=== PATIENT | male | born 1960 | race Caucasian/White ===

== ENCOUNTER 2023-10-21 11:32 | Outpatient (CLI) | payer OTHER, SELFPAY ==
--- NOTE | 2023-10-21 12:47 | CTR_ITS ---
PROCEDURE INFORMATION: Exam: CT Chest Without Contrast; Diagnostic Exam date and time: 10/21/2023 12:54 PM Age: 63 years old Clinical indication: Condition or disease; Lung condition and disease; Pulmonary nodule, solitary; Additional info: Follow up nodules TECHNIQUE: Imaging protocol: Diagnostic computed tomography of the chest without contrast. Radiation optimization: All CT scans at this facility use at least one of these dose optimization techniques: automated exposure control; mA and/or kV adjustment per patient size (includes targeted exams where dose is matched to clinical indication); or iterative reconstruction. COMPARISON: No relevant prior studies available. RADIATION DOSE METRICS: Total DLP (mGy-cm): 494.06 FINDINGS: Lungs: There is a 5 mm linear pleural-based nodularity involving the lateral aspect of the right lung apex. A rounded 8 mm semi-solid nodule involves the right upper lobe anteriorly. A 1 cm irregular nodule involves the lingula of the left lung. Pleural spaces: Unremarkable. No pneumothorax. No pleural effusion. Heart: Unremarkable. No cardiomegaly. No pericardial effusion. Coronary arteries: Coronary artery calcifications are noted. Lymph nodes: Unremarkable. No enlarged lymph nodes. Vasculature: Unremarkable. No aortic aneurysm. Bones/joints: Unremarkable. No acute fracture. Soft tissues: Unremarkable. CT/CT chest wo con [id number] IMPRESSION: 1. Bilateral benign-appearing lung nodules. Annual CT is recommended for follow-up. 2. For patients at low risk (minimal or absent history of smoking and of other known risk factors), no routine follow-up is indicated. For patients at high risk (history of smoking or of other known risk factors), consider optional CT Chest at 12 months. (Reference: Rosalba) REFERENCES: Rosalba Mendoza et al. Guidelines for Management of Incidental Pulmonary Nodules Detected on CT Images: From the Fleischner Society 2017. Radiology. 2017;284(1):228-243.
== END 2023-10-21 11:33 | disposition home or self-care (01) ==
LOC: RAD 11:32
PROVIDERS: Visit Provider Nurse Practitioner Family
DX: R91.8 Other nonspecific abnormal finding of lung field (principal); I25.84 Coronary atherosclerosis due to calcified coronary lesion
CPT/HCPCS: 71250

== ENCOUNTER → 2023-11-16 14:20 | Outpatient (BNVA) | payer OTHER, SELFPAY | PROVIDERS: Visit Provider Surgery | DX: Z12.11 Encounter for screening for malignant neoplasm of colon (principal) | CPT/HCPCS: 99204 ==

== ENCOUNTER 2024-01-05 05:47 | Day surgery (SDC) | payer OTHER, SELFPAY ==
[2024-01-05 06:02] VITALS: BP 110/72; PULSE 65; RESP 18; TEMP 36.6; O2SAT 96; BMI 29.8
--- NOTE | 2024-01-05 06:04 | W.PM.OPSFHP ---
Same Day Surgery H&P Indication for Procedure/HPI DATE OF PROCEDURE: January 05, 2024 CHIEF COMPLAINT/INDICATIONFOR SURGICAL PROCEDURE: need for screening colonoscopy PREOP DIAGNOSIS: need for screening colonoscopy PLANNED PROCEDURE: Operation Date: 01/05/24 07:00 Proposed Procedures p Colonoscopy - 02004, G0105, Z12.11(Not Applicable) - Miquel Choe MD Medications/Allergies* Home Medications Medication Instructions Recorded Confirmed Type acetaminophen 325 mg capsule 325 mg PO QID PRN pain or fever 11/16/23 01/03/24 History ascorbic acid (vitamin C) 500 mg 500 mg PO DAILY 11/16/23 01/03/24 History capsule aspirin 81 mg tablet,delayed 81 mg PO DAILY 11/16/23 01/03/24 History release atorvastatin 40 mg tablet 40 mg PO DAILY 11/16/23 01/03/24 History omeprazole 40 mg capsule,delayed 40 mg PO DAILY 11/16/23 01/03/24 History release tamsulosin 0.4 mg capsule 0.4 mg PO DAILY 11/16/23 01/03/24 History valsartan 320 1 tab PO DAILY 11/16/23 01/03/24 History mg-hydrochlorothiazide 25 mg tablet Allergies/Adverse Reactions Allergy/AdvReac Type Severity Reaction Status Date / Time No Known Allergies Allergy Unverified 01/03/24 10:06 Pertinent History/Comorbid Conditions* Social History Smoking and tobacco/nicotine status: current every day tobacco/nicotine user (chewing tobacco) smokeless tobacco Smokeless tobacco user: chewing tobacco Pertinent Exam Findings alert, oriented x 3, clear to auscultation bilaterally and regular rate & rhythm Recommendations Surgery/Procedure today Coding Level of Care Code Acute Code for Chg Fwd
[2024-01-05] MEDS: sodium chloride 0.9% 1,000 ML 30 ML IV (06:12)
--- NOTE | 2024-01-05 06:13 | P.ANESASSM_ITS ---
Pre-Anesthetic Assessment Height/Weight: Height 6 ft Weight 220 lb Temp Pulse Resp BP Pulse Ox O2 Del Method 97.9 F 65 18 110/72 96 Room Air 01/05/24 06:02 01/05/24 06:02 01/05/24 06:02 01/05/24 06:02 01/05/24 06:02 01/05/24 06:02 Preop Diagnosis: need for screening colonoscopy Operation Date: 01/05/24 07:00 Proposed Procedures p Colonoscopy - 42504, G0105, Z12.11(Not Applicable) - Miquel Choe MD Was Beta Luzmaria taken within 24 hours: N/A Was Clonidine taken within 24 hours: N/A Last intake: Intake Last Liquid Date 01/04/24 Last Liquid Time 22:00 Last Solid Date 01/03/24 Last Solid Time 20:00 Social No alcohol and No tobacco Exam alert, oriented x 3, clear to auscultation bilaterally and regular rate & rhythm Airway Submandibular: within normal limits Cervical ROM: within normal limits Mallampati: Class III Dentition: full Anesthetic Plan ASA status: 2 Anesthesia: MAC Other: No prior issues with anesthesia History of GERD on omeprazole Quit smoking years ago Hypertension on valsartan?HCTZ METs greater than 4 Plan for MAC anesthetic Medications/Allergies Home Medications Medication Instructions Recorded Confirmed Last Taken Type acetaminophen 325 mg capsule 325 mg PO QID PRN pain or fever 11/16/23 01/03/24 01/04/24 History ascorbic acid (vitamin C) 500 mg 500 mg PO DAILY 11/16/23 01/03/24 01/04/24 History capsule aspirin 81 mg tablet,delayed 81 mg PO DAILY 11/16/23 01/03/24 01/03/24 History release atorvastatin 40 mg tablet 40 mg PO DAILY 11/16/23 01/03/24 01/04/24 History omeprazole 40 mg capsule,delayed 40 mg PO DAILY 11/16/23 01/03/24 01/04/24 History release tamsulosin 0.4 mg capsule 0.4 mg PO DAILY 11/16/23 01/03/24 01/04/24 History valsartan 320 1 tab PO DAILY 11/16/23 01/03/24 01/04/24 History mg-hydrochlorothiazide 25 mg tablet Allergies Allergy/AdvReac Type Severity Reaction Status Date / Time No Known Allergies Allergy Unverified 01/03/24 10:06 [facility] Anesthesia Social History (Updated 11/16/23 @ 14:42 by PETAR Berger) Smoking and tobacco/nicotine status: current every day tobacco/nicotine user (chewing tobacco) smokeless tobacco Smokeless tobacco user: chewing tobacco Data Anesthesia Cardiac Studies: No Data to Display
[2024-01-05 07:32] VITALS: BP 106/61; PULSE 66; RESP 20; TEMP 36.1; O2SAT 100
[2024-01-05 07:47] VITALS: BP 120/78; PULSE 79; RESP 20; O2SAT 99
--- NOTE | 2024-01-05 08:14 | ANE.PACU2 ---
Inpatient post-anesthesia follow up: Airway intact: Yes Vital signs: Temperature 97.0 F Pulse Rate 79 Respiratory Rate 20 Blood Pressure 120/78 Pulse Oximetry 99 Oxygen Delivery Me thod Room Air Oxygen Flow Rate Fraction of Inspir ed Oxygen Hydration adequate: Yes Nausea and vomiting: No Pain level: 1 Mental status: Baseline
== END 2024-01-05 08:14 | disposition home or self-care (01) ==
PROVIDERS: Visit Provider Surgery
PROC: 0DJD8ZZ Inspection of Lower Intestinal Tract, Via Natural or Artificial Opening Endoscopic (ICD-10-PCS; CPT 45378; principal; 2024-01-05 07:00)
DX: Z12.11 Encounter for screening for malignant neoplasm of colon (principal); D12.3 Benign neoplasm of transverse colon; D12.8 Benign neoplasm of rectum; K57.30 Diverticulosis of large intestine without perforation or abscess without bleeding; Z79.82 Long term (current) use of aspirin; F17.220 Nicotine dependence, chewing tobacco, uncomplicated; K21.9 Gastro-esophageal reflux disease without esophagitis; I10 Essential (primary) hypertension
CPT/HCPCS: 45385; 88305; J2704; J3490; J7030

== ENCOUNTER → 2024-01-18 11:08 | Outpatient (BNVA) | payer OTHER, SELFPAY | PROVIDERS: Visit Provider Surgery | DX: Z09 Encounter for follow-up examination after completed treatment for conditions other than malignant neoplasm (principal) | CPT/HCPCS: 99213 ==

== ENCOUNTER → 2024-01-25 07:38 | Outpatient (BNVA) | payer OTHER, SELFPAY | PROVIDERS: Visit Provider Podiatrist Foot & Ankle Surgery | DX: M79.671 Pain in right foot (principal); M79.672 Pain in left foot; M20.21 Hallux rigidus, right foot; M20.22 Hallux rigidus, left foot; M72.2 Plantar fascial fibromatosis | CPT/HCPCS: 73630; 99203 ==

== ENCOUNTER → 2024-07-25 07:43 | Outpatient (BNVA) | payer OTHER, SELFPAY | PROVIDERS: Visit Provider Podiatrist Foot & Ankle Surgery | DX: M20.21 Hallux rigidus, right foot (principal); M20.22 Hallux rigidus, left foot; M72.2 Plantar fascial fibromatosis | CPT/HCPCS: 99214 ==

== ENCOUNTER 2024-10-18 09:44 | Outpatient (CLI) | payer OTHER, SELFPAY ==
--- NOTE | 2024-10-18 09:53 | CT_ITS ---
WS: [id number] CT CHEST TECHNIQUE: Noncontrast CT of the chest with coronal and sagittal reformatted images. CLINICAL INFORMATION: SCREENING FOR NODULE COMPARISON: CT 2023 DLP: 500.[address] scans at [facility] use at least one of these dose optimization techniques: automated exposure control; mA and/or kV adjustment per patient size (includes targeted exams where dose is matched to clinical indication); or iterative reconstruction. FINDINGS: Stable 3 mm pleural-based nodule RIGHT lung apex laterally. Stable 8 mm semisolid nodule RIGHT upper lobe anteriorly. Slightly irregular 11 mm nodule involving the lingula similar in appearance with increased associated parenchymal scarring abutting the LEFT heart border. No new suspicious pulmonary parenchymal abnormalities. Aortic calcification. Minimal coronary calcification. No mediastinal or hilar lymphadenopathy. No axillary lymphadenopathy. Moderate thoracic kyphosis. Endplate Schmorl's nodes in the midthoracic spine. RIGHT adrenal nodule likely adenoma. Normal LEFT adrenal gland. CT/CT chest wo con [id number] IMPRESSION: 1. Slightly irregular 11 mm nodule involving the lingula similar in appearance with increased associated surrounding parenchymal scarring abutting the LEFT h eart border. Recommend 6-month follow-up to confirm stability. 2. No other significant changes.
== END 2024-10-18 09:45 | disposition home or self-care (01) ==
LOC: RAD 09:45
PROVIDERS: Visit Provider Nurse Practitioner Family
DX: R91.8 Other nonspecific abnormal finding of lung field (principal)
CPT/HCPCS: 71250

== ENCOUNTER → 2024-10-24 07:49 | Outpatient (BNVA) | payer OTHER, SELFPAY | PROVIDERS: Visit Provider Surgery | DX: K21.9 Gastro-esophageal reflux disease without esophagitis (principal) | CPT/HCPCS: 99214 ==

== ENCOUNTER 2025-01-03 09:05 | Day surgery (SDC) | payer OTHER, SELFPAY ==
[2025-01-03 09:26] VITALS: BP 124/81; PULSE 78; RESP 18; TEMP 36.2; O2SAT 99; BMI 28.5
--- NOTE | 2025-01-03 09:42 | W.PM.OPSFHP ---
Same Day Surgery H&P Indication for Procedure/HPI DATE OF PROCEDURE: January 03, 2025 CHIEF COMPLAINT/INDICATIONFOR SURGICAL PROCEDURE: GERD PREOP DIAGNOSIS: reflux PLANNED PROCEDURE: Operation Date: 01/03/25 11:15 Proposed Procedures p EGD EGD with Biopsy 84462 k21.9(Not Applicable) - Miquel Choe MD Medications/Allergies* Home Medications ?Medication ?Instructions ?Recorded ?Confirmed ?Type acetaminophen 325 mg capsule 325 mg PO QID PRN pain or fever 11/16/23 01/01/25 History ascorbic acid (vitamin C) 500 mg 500 mg PO DAILY 11/16/23 01/01/25 History capsule aspirin 81 mg tablet,delayed 81 mg PO DAILY 11/16/23 01/01/25 History release atorvastatin 40 mg tablet 40 mg PO DAILY 11/16/23 01/01/25 History omeprazole 40 mg capsule,delayed 40 mg PO DAILY 11/16/23 01/01/25 History release tamsulosin 0.4 mg capsule 0.4 mg PO DAILY 11/16/23 01/01/25 History valsartan 320 1 tab PO DAILY 11/16/23 01/01/25 History mg-hydrochlorothiazide 25 mg tablet cyclobenzaprine 10 mg tablet 10 mg PO TID PRN Muscle Spasm 01/18/24 01/01/25 History famotidine 20 mg PO DAILY 01/01/25 01/01/25 History [id number] 300 mcg-K 60 tab PO 01/03/25 History mcg-lycop 600 mcg-lutein 300 mcg tablet (Centrum Silver Men) Allergies/Adverse Reactions Allergy/AdvReac Type Severity Reaction Status Date / Time No Known Allergies Allergy Verified 10/24/24 07:56 Current Medications: Generic Name Dose Route Start Last Admin Trade Name Freq PRN Reason Stop Dose Admin Sodium Chloride 1,000 mls @ 15 mls/hr 01/03/25 09:12 01/03/25 09:32 Sodium Chloride 0.9% IV 01/04/25 09:11 15 mls/hr .Q24H PRN Administration COLONOSCOPY FLUIDS Pertinent History/Comorbid Conditions* Social History Smoking and tobacco/nicotine status: current every day tobacco/nicotine user (chewing tobacco) smokeless tobacco Smokeless tobacco user: chewing tobacco Pertinent Exam Findings alert, oriented x 3, clear to auscultation bilaterally and regular rate & rhythm Recommendations Surgery/Procedure today Coding Level of Care Code Acute Code for Chg Fwd
--- NOTE | 2025-01-03 09:55 | ANES.PREANE2 ---
Pre-Anesthetic Assessment Height/Weight: Height 1.83 m Weight 95.254 kg Temp Pulse Resp BP Pulse Ox O2 Del Method 97.1 F L 78 18 124/81 99 Room Air 01/03/25 09:26 01/03/25 09:26 01/03/25 09:26 01/03/25 09:26 01/03/25 09:26 01/03/25 09:26 Preop Diagnosis: reflux Operation Date: 01/03/25 11:15 Proposed Procedures p EGD EGD with Biopsy [id number] k21.9(Not Applicable) - Miquel Choe MD Familial anesthetic complications: none Was Beta Luzmaria taken within 24 hours: N/A Was Clonidine taken within 24 hours: N/A Last intake: Intake Last Liquid Date 01/02/25 Last Liquid Time 20:00 Last Solid Date 01/02/25 Last Solid Time 20:00 Social No alcohol (4-5 beers/day) and No tobacco Exam alert and oriented x 3 Airway Submandibular: within normal limits Cervical ROM: within normal limits Mallampati: Class I Dentition: full History/ROS No significant history except as noted Pulmonary None reported CV/HEM Hypertension None reported Hepatic None reported GI Gastroesophageal Reflux Disease Metabolic Hyper[place] [facility] [place] None reported Neuropsych None reported Anesthetic Plan ASA status: 2 Anesthesia: Anesthesia Evaluation and MAC Medications/Allergies Home Medications ?Medication ?Instructions ?Recorded ?Confirmed ?Last Taken ?Type acetaminophen 325 mg capsule 325 mg PO QID PRN pain or fever 11/16/23 01/01/25 01/04/24 History ascorbic acid (vitamin C) 500 mg 500 mg PO DAILY 11/16/23 01/01/25 01/03/25 07:30 History capsule 500 mg aspirin 81 mg tablet,delayed 81 mg PO DAILY 11/16/23 01/01/25 01/01/25 History release 81 mg atorvastatin 40 mg tablet 40 mg PO DAILY 11/16/23 01/01/25 01/01/25 History 40 mg omeprazole 40 mg capsule,delayed 40 mg PO DAILY 11/16/23 01/01/25 01/01/25 History release 40 mg tamsulosin 0.4 mg capsule 0.4 mg PO DAILY 11/16/23 01/01/25 01/01/25 History 0.4mg valsartan 320 1 tab PO DAILY 11/16/23 01/01/25 01/03/25 07:30 History mg-hydrochlorothiazide 25 mg tablet 320-25mg cyclobenzaprine 10 mg tablet 10 mg PO TID PRN Muscle Spasm 01/18/24 01/01/25 Unknown History Orthopedic shoes or boots with #1 ea 07/25/24 10/24/24 Unknown Rx custom orthotics with bilateral brown's extension diclofenac sodium 1 % topical gel 2 g topical BID 30 days #100 grams 07/25/24 01/01/25 Unknown Rx (Voltaren Arthritis Pain) famotidine 20 mg PO DAILY 01/01/25 01/01/25 01/01/25 History [id number] 300 mcg-K 60 tab PO 01/03/25 01/03/25 07:30 History mcg-lycop 600 mcg-lutein 300 mcg tablet (Centrum Silver Men) Allergies Allergy/AdvReac Type Severity Reaction Status Date / Time No Known Allergies Allergy Verified 10/24/24 07:56 Current Medications Generic Name Dose Route Start Last Admin Trade Name Freq PRN Reason Stop Dose Admin Sodium Chloride 1,000 mls @ 15 mls/hr 01/03/25 09:12 01/03/25 09:32 Sodium Chloride 0.9% IV 01/04/25 09:11 15 mls/hr .Q24H PRN Administration COLONOSCOPY FLUIDS PFSH Anesthesia Social History Smoking and tobacco/nicotine status: current every day tobacco/nicotine user (chewing tobacco) smokeless tobacco Smokeless tobacco user: chewing tobacco
[2025-01-03 10:45] VITALS: BP 101/67; PULSE 78; RESP 18; TEMP 36.2; O2SAT 93
[2025-01-03 11:00] VITALS: BP 110/69; PULSE 77; RESP 18; O2SAT 94
--- NOTE | 2025-01-03 11:30 | ANE.PACU2 ---
Inpatient post-anesthesia follow up: Airway intact: Yes Vital signs: Temperature 97.1 F Pulse Rate 77 Respiratory Rate 18 Blood Pressure 110/69 Pulse Oximetry 94 Oxygen Delivery Me thod Room Air Oxygen Flow Rate Fraction of Inspir ed Oxygen Hydration adequate: Yes Nausea and vomiting: No Pain level: 1 Mental status: Baseline
== END 2025-01-03 11:30 | disposition home or self-care (01) ==
PROVIDERS: Visit Provider Surgery
PROC: 0DJ08ZZ Inspection of Upper Intestinal Tract, Via Natural or Artificial Opening Endoscopic (ICD-10-PCS; principal; 2025-01-03 11:15)
DX: K21.9 Gastro-esophageal reflux disease without esophagitis (principal); K29.80 Duodenitis without bleeding; K29.70 Gastritis, unspecified, without bleeding; Z79.82 Long term (current) use of aspirin; F17.220 Nicotine dependence, chewing tobacco, uncomplicated; E78.5 Hyperlipidemia, unspecified
CPT/HCPCS: 43239; 88305; J2704; J7030

== ENCOUNTER → 2025-01-23 08:02 | Outpatient (BNVA) | payer OTHER, SELFPAY | PROVIDERS: Visit Provider Surgery | DX: Z09 Encounter for follow-up examination after completed treatment for conditions other than malignant neoplasm (principal) | CPT/HCPCS: 99213 ==